=== PATIENT | female | born 1935 | race Caucasian/White ===

== ENCOUNTER → 2016-04-28 | Outpatient (CLI) | payer MEDICARE, OTHER ==
[~2016-04-28] MED LIST: ASPIRIN 81MG TA81 MG PO; CENTRUM1 TAB PO; CITRACAL ULTRAD PO; CORGARD 40MG TA40 MG PO; FEMARA2.5 MG PO; FLONASE 50 MCG16 GM; HYDROCHLOROTH12.5 M1 PO; LOSARTAN POTASS50 MG PO; NATURE'S BLE1000 MCG PO; NEXIUM40 MG PO; OXYBUTYNIN5 MG PO; PLAVIX 75MG TAB75 MG PO; TYLENOL PM1 CAP PO; VITAMIN B122500 MCG SL; VYTORIN 10 MG-21 TAB PO
[2016-04-28 09:47] LABS: HEMOGLOBIN 12.5 g/dL (12.2-16.2); LYMPH # 1.2 K/mm3 (0.7-4.5); LYMPH % 28.4 % (10-50.0)
[2016-04-28 12:24] LABS: BUN 13 mg/dL (7-18); GFR (ESTIMATED) 118 ML/MIN (59-)
== END ==
LOC: LAB 09:33
PROVIDERS: Nurse Practitioner Family
DX: E53.8 Deficiency of other specified B group vitamins (principal); E78.5 Hyperlipidemia, unspecified; I10 Essential (primary) hypertension

== ENCOUNTER → 2016-11-30 | Outpatient (CLI) | payer MEDICARE, OTHER ==
[~2016-11-30] MED LIST changes: +LORTAB 5/3251 TAB PO
[2016-11-30 09:35] LABS: BUN 16 mg/dL (7-18); GFR (ESTIMATED) 96 ML/MIN (59-)
--- NOTE | 2016-12-01 10:14 | RADIOLOGY REPORT PS360 ---
CT CHEST W/WO CONTRAST HISTORY: Solitary pulmonary nodule, follow-up lung nodule. Follow-up abnormal chest CT LUNG NODULE ORDERING PHYSICIAN: REGAN GUZMAN MD PATIENT AGE: 81 years TECHNIQUE: Helical acquisition obtained without and with contrast.. Axial, sagittal, and coronal reformatted images are generated and reviewed. COMPARISON: 07/21/2016 FINDINGS: No mediastinal or hilar mass or adenopathy is evident. Normal heart size. No evidence of central pulmonary embolus or aortic aneurysm or dissection. There are coronary artery calcifications. No change 4 mm noncalcified nodule right upper lobe posteriorly no change 7 mm nodule right upper lobe anteriorly and inferiorly. No change 1 cm nodule left lower lobe. No new nodules are evident. No significant enhancement of the nodules. Minimal subpleural nodular density is present in the right upper lobe posteriorly unchanged. No lobar consolidation or collapse. There is some pleural calcification in the right hemithorax posteriorly and medially and there is diaphragmatic calcification as well. Upper abdominal images are unremarkable. No acute bony anomalies. Old right-sided rib fractures noted and there is an old fracture of the head of the left clavicle IMPRESSION: 1. Stable CT appearance of the chest. No change in the right upper and left lower lobe nodules. Continued 6 month follow-up suggested. 2. Coronary artery disease. 3. Pleural and diaphragmatic calcification. Old rib fractures are once again noted as well
== END ==
LOC: RAD 09:45
PROVIDERS: Thoracic Surgery (Cardiothoracic Vascular Surgery)
DX: R91.1 Solitary pulmonary nodule (principal)
CPT/HCPCS: Q9967

== ENCOUNTER → 2017-01-24 | Outpatient (CLI) | payer MEDICARE, OTHER ==
[~2017-01-24] MED LIST changes: +ZOFRAN ODT4 MG PO
[2017-01-24 17:59] LABS: LYMPH # 2.2 K/mm3 (0.7-4.5); LYMPH % 18.8 % (10-50.0)
[2017-01-24 19:30] LABS: BUN 15 mg/dL (7-18); GFR (ESTIMATED) 95 ML/MIN (59-)
== END ==
LOC: LAB 17:20
PROVIDERS: Physician Assistant
DX: R53.1 Weakness (principal); K62.5 Hemorrhage of anus and rectum

== ENCOUNTER 2017-01-25 08:07 | Emergency (ER) | payer MEDICARE, OTHER ==
[~2017-01-25] VITALS: Ht 160 cm; Wt 62.6 kg
[~2017-01-25 08:07] MED LIST changes: -ZOFRAN ODT4 MG PO
[2017-01-25] MEDS ORDERED: ZOFRAN ODT4 MG PO (09:28)
--- NOTE | 2017-01-25 09:29 | Emergency Room Report ---
History of Present Illness Time Seen by [id number] Presenting Problem in Triage Pt arrived:Walked Presenting Problem:UP ALL NIGHT WITH VOMITING AND DIARRHEA. HAS CONTINUED FOR 2 DAYS. Onset of symptoms date/time:/ or onset unknown for:MEDICAL HX UNKNOWN Treatment Prior to Arrival: [employer] Provided by: Sepsis Risk Assessment: Temp: 98.1 B/P: 145/68 MAP: 96 Pulse: 80 Resp: 18 Recent fever? N Clinical Suspician of Infection? N Mental Status: 1 - Regular (Normal Baseline) Sepsis Risk:Low Sepsis Risk Have you (or family members/close friends) recently traveled outside the [place]? N If Yes, where/when: Have you had exposure to infectious disease within the past month? N TB? Other? Specify: Source patient, RN notes reviewed, family, RN/MD Exam Limitations no limitations Comment Patient is an 79-year-old lady arriving to the emergency room with nausea, vomiting, diarrhea for the past 2 days. She was seen at PCPs office yesterday where stool sample was collected, results still pending. Her last episode of diarrhea was this morning at 5 AM, and she did not have any vomiting since midnight. Episode patient had an episode of sore throat with cough and congestion, which was successfully treated with antibiotics, with patient denying any further, at this time. ALLERGIES Coded Allergies: No Known Allergies (06/30/16) Home Medications Active Scripts HYDROCODONE/ACETAMINOPHEN (Lortab 5-325 MG Tablet) 1 TAB PO Q6HP PRN pain #20 TAB Prov: 06/30/16 Reported Medications Esomeprazole Magnesium (Nexium 40MG Cap) 40 MG PO DAILY CLOPIDOGREL BISULFATE (PLAVIX) 75 MG PO DAILY Hydrochlorothiazide (Hydrochlorothiazide 12.5MG) 12.5 MG PO DAILY CYANOCOBALAMIN (VITAMIN B-12) (Vitamin B-12) 2,500 MCG SL DAILY Ezetimibe/Simvastatin (Vytorin 10-20 MG Tablet) 1 TAB PO DAILY Letrozole (Femara) 2.5 MG PO DAILY Fluticasone Propionate (Flonase 50 Mcg Nasal [place]) 1 SPRAY NA QHS Nadolol (Corgard 40MG Tab) 40 MG PO QHS Losartan Potassium (Losartan 50MG) 25 MG PO DAILY Biotin 1,000 MCG PO DAILY ASPIRIN (Aspirin) 81 MG PO DAILY Calcium/Vitamin D (Citracal Ultradense Calcium Citrate) 1 TAB PO BID MULTIVIT,THER IRON,CA,FA & MIN (Sm Therapeutic M Tablet) 1 TAB PO DAILY ACETAMINOPHEN/DIPHENHYDRAMINE (Tylenol Pm Ex-Strength Gelcap) 2 CAP PO QHSP PRN SLEEP OXYBUTYNIN CHLORIDE (Oxybutynin 5MG Tab) 10 MG PO DAILY History Medical History General CAD? No Angina: No [place]: No Hypertension? Yes Hyperlipidemia? Yes CHF? No DVT? No PE? No COPD? No Asthma? No Anemia? No GERD? No Gastric ulcers? No GI Bleed? No Hernia? No Thyroid Problems? No Hypothyroidism? No CVA? Yes Seizures? No Diabetes? No Renal Insuffiency? No End Stage Renal Disease? No UTI? No Stones? No BPH? No GB Disease: No Nephritic Syndrome? No Asplenia? No Hepatitis? No Sickle Cell Disease? No Arthritis? No Migraines? No Cataracts? Yes Glaucoma? Yes MRSA? No HIV? No TB? No Anxiety? No Depression? No Cancer? Yes Site: BREAST Immunization Hx DT/Tetanus 06/30/16 Flu Pneumonia NEVER Surgical Hx Previous Surgery?Y ABD SURG-LIVER LEFT KNEE CATARACTS Family History Family Hx Diabetes No CAD No Hypertension Yes Hyperlipidemia Yes Cancer Yes TB No Social History Smoking Hx Smoker: Never Smoker Tobacco: No Alcohol Alcohol: No Review of Systems All Other Systems Reviewed and Negative Respiratory cough, shortness of breath Physical Exam Vital Signs Vital Signs Date Time Temp Pulse Resp B/P Pulse O2 O2 Flow FiO2 Ox Delivery Rate 01/25 1014 98.1 80 18 145/68 95 01/25 0813 98.0 102 16 132/79 98 General Appearance normal appearance, WD/WN, no apparent distress Ear, Nose, Throat hearing grossly normal, normal ENT inspection Respiratory Status Yes: trachea midline, chest symmetrical, non tender chest. No: respiratory distress. Lung Sounds bilateral: normal breath sounds, lungs clear. 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 No Comment 0915am-upon re-evaluation patient the patient appears medically stable, in no acute distress, with no further symptoms. Patient was unable to collect a stool sample while in the emergency room, so a outpatient sleep for diarrhea panel was given to her together with a collection cup, so that patient can collect sample as outpatient. PCP will follow-up on results. Results/Orders Laboratory Tests 01/25/17 0909: Stl Aeromonas (PCR) Cancelled, Stl Cyclospora species Cancelled, Stool Rotavirus (PCR) Cancelled, Stool Astrovirus (PCR) Cancelled, Stool Campylobacter PCR Cancelled, Stool Cryptosporidium PCR Cancelled, Stl E. histolytica PCR Cancelled , Stool Giardia Lamblia PCR Cancelled, Stl P. shigelloides PCR Cancelled, Stool Sapovirus (PCR) Cancelled, Stool Vibrio (PCR) Cancelled, Stl Vibrio cholerae PCR Cancelled, Stl Norovirus GI/GII PCR Cancelled, Adenovirus (PCR) Cancelled, C. difficile Tox (PCR) Cancelled, E. coli (PCR) Cancelled, Salmonella (PCR) Cancelled, Yersinia (PCR) Cancelled Current Medication Orders Sig/Rory Start time Last Medication Dose Route Stop Time Status Admin Sodium Chloride 10 ML PRN PRN 01/25 0900 DCD IV 01/26 0852 Sodium Chloride 1,000 ML .Q1H1M 01/25 0845 DC 01/25 IV 01/25 0945 0849 Sodium Chloride 10 ML PRN PRN 01/25 0845 DCD 01/25 IV 01/26 0841 0849 Orders Procedure Date/time Status IV SALINE LOCK 01/25 0852 Active Departure Departure Time of Disposition 0926 Disposition DC Home or Self Care(routine) Clinical Impression Primary Impression: Dehydration Secondary Impressions: Viral gastroenteritis Condition STABLE Referrals Johann CH,Nathaniel (Family): 2 Days-Call Office if not better Patient Instructions DI for Dehydration -- Adult, DI for Viral Gastroenteritis - - Adult Additional Instructions Please drink plenty of fluids, take the probiotics, turn in the stool sample with slip order attaced, and call Piedad Lee fo results. Discharge Counseling Counseled pt/family regarding diagnosis, test results, medications/RX, home care, follow up needs Comment Please drink plenty of fluids, take the probiotics, turn in the stool sample with slip order attaced, and call Piedad Lee fo results. Prescriptions Current Visit Scripts Ondansetron (Zofran 4MG Odt) 4 MG PO Q6HP PRN NAUSEA AND VOMITING #28 ODT ED Critical Care Critical Care No at 0985
[2017-01-25 10:14] VITALS: BP 145/68
== END 2017-01-25 10:15 | disposition home or self-care (01) ==
LOC: ER 08:07
DX: E86.0 Dehydration (principal); A08.4 Viral intestinal infection, unspecified; I10 Essential (primary) hypertension; E78.5 Hyperlipidemia, unspecified; Z79.02 Long term (current) use of antithrombotics/antiplatelets; Z79.82 Long term (current) use of aspirin; Z79.51 Long term (current) use of inhaled steroids; Z79.899 Other long term (current) drug therapy; Z86.73 Personal history of transient ischemic attack (TIA), and cerebral infarction without residual deficits; Z85.3 Personal history of malignant neoplasm of breast

== ENCOUNTER → 2017-01-26 | Outpatient (CLI) | payer MEDICARE, OTHER ==
[~2017-01-26] MED LIST changes: +ZOFRAN ODT4 MG PO
[2017-01-26 13:20] LABS: AEROMONAS NOT DETECTED (NOT DETECTE); ASTROVIRUS NOT DETECTED (NOT DETECTE); CYCLOSPORA CAYETANENSIS NOT DETECTED (NOT DETECTE); E COLI O157 NOT DETECTED (NOT DETECTE); ENTEROAGGREGATIVE E COLI NOT DETECTED (NOT DETECTE); ENTEROPATHOGENIC E COLI NOT DETECTED (NOT DETECTE); ENTEROTOXIGENIC E COLI NOT DETECTED (NOT DETECTE); SAPOVIRUS NOT DETECTED (NOT DETECTE); SHIGA-LIKE TOXIN PROD. E COLI NOT DETECTED (NOT DETECTE); SHIGELLA/ENTEROINVASIVE E COLI NOT DETECTED (NOT DETECTE); VIBRIO CHOLERAE NOT DETECTED (NOT DETECTE)
[2017-01-27 00:13] LABS: NOROVIRUS DETECTED (NOT DETECTE)
== END ==
LOC: LAB 13:15
PROVIDERS: Emergency Medicine
DX: R19.7 Diarrhea, unspecified (principal)